=== PATIENT | male | born 1985 | race Caucasian/White ===

== ENCOUNTER 2016-09-15 22:15 | Inpatient (IN) | payer OTHER, BC ==
[~2016-09-15] VITALS: Ht 170.2 cm; Wt 67.4 kg
[~2016-09-15 22:15] MED LIST: Z.0.NO CURRENT MEDS
[2016-09-15 22:20] VITALS: BP 120/66; PULSE 86; RESP 15; TEMP 98.5; O2SAT 98
[2016-09-15] MEDS ORDERED: SODIUM CHLOR 0.9% 1000 ML INJ 1,000 ML IV SCH (22:22)
[2016-09-15 22:27] VITALS: RESP 16; O2SAT 97
[2016-09-15 22:32] VITALS: BP 111/59; PULSE 99; RESP 12; O2SAT 97
[2016-09-15 22:40] LABS: AUTOMATED NEUTROPHIL # 13.6 TH/MM3 (1.8-7.7); BASOPHIL # 0.1 TH/MM3 (0-0.2); BASOPHIL % 0.6 % (0.0-2.0); EOSINOPHIL % 0.1 % (0.0-4.0); HEMATOCRIT 36.7 % (39.0-51.0); HEMO FLAGS DIFF FINAL; LYMPH % 5.2 % (9.0-44.0); LYMPHOCYTE # 0.8 TH/MM3 (1.0-4.8); MEAN CELL VOLUME 78.6 FL (80.0-100.0); MEAN CORPUSCULAR HEMOGLOBIN 26.7 PG (27.0-34.0); MONO % 5.3 % (0.0-8.0); NEUT % 88.8 % (16.0-70.0); PLATELET COUNT 342 TH/MM3 (150-450); RED BLOOD COUNT 4.67 MIL/MM3 (4.50-5.90); RED CELL DISTRIBUTION WIDTH 15.5 % (11.6-17.2); WHITE BLOOD COUNT 15.3 TH/MM3 (4.0-11.0)
[2016-09-15 22:42] LABS: I-STAT POTASSIUM 3.8 MMOL/L (3.5-4.9); I-STAT SODIUM 143 MMOL/L (138-146)
[2016-09-15 22:55] LABS: ANION GAP 11 MEQ/L (5-15); AST (GOT) 85 U/L (15-37); BICARBONATE 23.8 MEQ/L (21.0-32.0); BLOOD UREA NITROGEN 17 MG/DL (7-18); CHLORIDE 110 MEQ/L (98-107); GLOMERULAR FILTRATION RATE 88 ML/MIN (>89); POTASSIUM 3.8 MEQ/L (3.5-5.1); SODIUM (NA) 145 MEQ/L (136-145)
[2016-09-15 22:59] LABS: ALKALINE PHOSPHATASE 140 U/L (45-117); ALT (GPT) 57 U/L (12-78); TOTAL BILIRUBIN ADULT 0.3 MG/DL (0.2-1.0)
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
[2016-09-15] MEDS ORDERED: TETANUS/DIPHTHERIA TOXOID ADULT 0.5 ML VIAL IM ONE (23:15)
[2016-09-15 23:25] LABS: PROTHROMBIN TIME - PATIENT 11.4 SEC (9.8-11.6)
[2016-09-15] MEDS ORDERED: IOHEXOL 350 MG/ML 10 ML VIAL (for RAD DIAG) IV ONE (23:37)
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
[2016-09-16] VITALS (7 sets, daily range): BP systolic 103–148; BP diastolic 57–75; PULSE 56–96; RESP 16–20; TEMP 96.9–98.4; O2SAT 96–100
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
[2016-09-16] MEDS ORDERED: MORPHINE SULFATE 4 MG/ML INJ IV PUSH ONE (00:15)
[2016-09-16] MEDS ORDERED: SODIUM CHLORIDE 0.9% FLUSH 5 ML FLUSH IVF PRN (00:15)
[2016-09-16] MEDS ORDERED: ENALAPRILAT 1.25 MG/ML VIAL IV PRN (00:15)
[2016-09-16] MEDS ORDERED: ONDANSETRON HCL 4 MG/2 ML VIAL IV PRN (00:15)
[2016-09-16] MEDS ORDERED: ACETAMINOPHEN/HYDROcodone 325 MG/5 MG TAB PO PRN (00:15)
[2016-09-16] MEDS ORDERED: HYDROmorphone HCL PF 1 MG/ML VIAL IVP PRN (00:15)
[2016-09-16] MEDS ORDERED: CHLORHEXIDINE GLUCONATE 2 % 1 PACK (2 CLOTHS) TOP PRN (00:15)
[2016-09-16] MEDS ORDERED: MISCELLANEOUS NURSING INFORMATION XX SCH (00:15)
[2016-09-16] MEDS: PANTOPRAZOLE SODIUM 40 MG VIAL IVP SCH ×2 (01:51→22:51)
[2016-09-16] MEDS: DOCUSATE SODIUM 100 MG CAP PO SCH ×3 (01:51→22:53)
[2016-09-16] MEDS: SODIUM CHLOR 0.9% 1000 ML INJ 1,000 ML IV SCH ×3 (01:51→16:08)
[2016-09-16] MEDS: KETOROLAC TROMETHAMINE 30 MG/ML (IVP) VIAL IVP SCH ×4 (02:44→18:38)
[2016-09-16] MEDS: MULTIVITAMIN INJ 10 ML, THIAMINE INJ 100 MG, FOLIC ACID INJ 1 MG in SODIUM CHLORID 0.9%... IV SCH (02:48)
[2016-09-16] MEDS ORDERED: CHLORHEXIDINE GLUCONATE 2 % 1 PACK (2 CLOTHS) TOP SCH (04:00)
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
[2016-09-16] MEDS: ACETAMINOPHEN/HYDROcodone 325 MG/5 MG TAB PO PRN ×2 (15:49→22:51)
[2016-09-16] MEDS ORDERED: MILKSUS PO (21:13)
[2016-09-16] MEDS ORDERED: DOCU1CAP39 PO (21:13)
[2016-09-16] MEDS: MAGNESIUM HYDROXIDE SUSP 30 ML CUP PO SCH (22:53)
[2016-09-17 00:21] VITALS: BP 130/66; PULSE 62; RESP 20; TEMP 96.6; O2SAT 94
[2016-09-17] MEDS: KETOROLAC TROMETHAMINE 30 MG/ML (IVP) VIAL IVP SCH ×4 (01:00→18:37)
[2016-09-17] MEDS: MULTIVITAMIN INJ 10 ML, THIAMINE INJ 100 MG, FOLIC ACID INJ 1 MG in SODIUM CHLORID 0.9%... IV SCH (02:49)
[2016-09-17 03:30] LABS: BLOOD, URINE SMALL (NEG); COMMENT (UR) CULT NOT INDICATED; CULTURE IF INDICATED CULT NOT INDICATED; GLUCOSE,URINE NEG (NEG); KETONE, URINE NEG (NEG); MUCUS URINE FEW /lpf (OCC); NITRITE,URINE NEG (NEG); PH, URINE 6.5 (5.0-8.5); URINE COLOR YELLOW (YELLW/STRAW)
[2016-09-17 04:19] VITALS: BP 111/54; PULSE 55; RESP 20; TEMP 95.4; O2SAT 92
[2016-09-17] MEDS: SODIUM CHLOR 0.9% 1000 ML INJ 1,000 ML IV SCH ×2 (05:28→18:48)
[2016-09-17 05:54] LABS: AUTOMATED NEUTROPHIL # 4.3 TH/MM3 (1.8-7.7); BASOPHIL % 0.5 % (0.0-2.0); EOSINOPHIL # 0.2 TH/MM3 (0-0.4); EOSINOPHIL % 2.8 % (0.0-4.0); HEMATOCRIT 33.4 % (39.0-51.0); HEMO FLAGS DIFF FINAL; LYMPH % 25.2 % (9.0-44.0); LYMPHOCYTE # 1.7 TH/MM3 (1.0-4.8); MEAN CELL VOLUME 78.6 FL (80.0-100.0); MEAN CORPUSCULAR HEMOGLOBIN 26.5 PG (27.0-34.0); MEAN CORPUSCULAR HGB CONC 33.8 % (32.0-36.0); MONO % 7.9 % (0.0-8.0); NEUT % 63.6 % (16.0-70.0); PLATELET COUNT 240 TH/MM3 (150-450); RED BLOOD COUNT 4.25 MIL/MM3 (4.50-5.90); RED CELL DISTRIBUTION WIDTH 15.4 % (11.6-17.2); WHITE BLOOD COUNT 6.7 TH/MM3 (4.0-11.0)
[2016-09-17 06:14] LABS: BICARBONATE 27.5 MEQ/L (21.0-32.0); POTASSIUM 3.9 MEQ/L (3.5-5.1)
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
[2016-09-17 08:18] VITALS: BP 124/71; PULSE 64; RESP 18; TEMP 97.4; O2SAT 94
[2016-09-17] MEDS: DOCUSATE SODIUM 100 MG CAP PO SCH ×2 (08:44→20:35)
[2016-09-17] MEDS ORDERED: LIDOCAINE HCL 1% 50 ML VIAL INFIL ONE (11:15)
--- NOTE | 2016-09-17 12:49 | PD.OP ---
Operative Report Date of Surgery: Sep 17, 2016 Preoperative Diagnosis: (1) Pneumothorax (2) Rib fractures (3) Pulmonary contusion Postoperative Diagnosis: (1) Pneumothorax (2) Rib fractures (3) Pulmonary contusion Procedure: Right chest tube placement Anesthesia: Local 8cc 1% plain lidocaine Surgeon: Jean Trevino Sales Supervisor(s): None Resident Surgeon: None Operation and Findings: After obtaining informed consent the patient was prepped and draped in the standard sterile manner. A small 1 cm incision was made over the third rib and into the second intercostal space, midclavicular line, after infiltrating the area with 8 cc of 1% plain lidocaine. The 8 Italian Bard catheter was then threaded into position. Once the introducer needle breached the anterior pleural wall it was retracted and the catheter threaded without resistance. It was secured with the catheter locking system and connected to a Pleur-evac. The patient tolerated the procedure well there were no complications. Postoperative chest x-ray was ordered to confirm placement. All sharps were accounted for and disposed of properly. Jean Trevino MD Sep 17, 2016 12:49
[2016-09-17 12:50] VITALS: BP 128/70; PULSE 66; RESP 18; TEMP 98.2; O2SAT 95
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
[2016-09-17 19:50] VITALS: BP 132/75; PULSE 64; RESP 18; TEMP 98.5; O2SAT 95
[2016-09-17] MEDS: MAGNESIUM HYDROXIDE SUSP 30 ML CUP PO SCH (20:35)
[2016-09-18] VITALS (7 sets, daily range): BP systolic 103–140; BP diastolic 65–72; PULSE 52–61; RESP 16–20; TEMP 96.3–98; O2SAT 96–99
[2016-09-18] MEDS: PANTOPRAZOLE SODIUM 40 MG VIAL IVP SCH (01:44)
[2016-09-18] MEDS: KETOROLAC TROMETHAMINE 30 MG/ML (IVP) VIAL IVP SCH ×4 (01:45→21:00)
[2016-09-18] MEDS: MULTIVITAMIN INJ 10 ML, THIAMINE INJ 100 MG, FOLIC ACID INJ 1 MG in SODIUM CHLORID 0.9%... IV SCH (02:15)
[2016-09-18] MEDS: SODIUM CHLOR 0.9% 1000 ML INJ 1,000 ML IV SCH ×2 (08:08→21:28)
[2016-09-18] MEDS: SODIUM CHLORIDE 0.9% FLUSH 5 ML FLUSH IVF PRN (09:42)
[2016-09-18] MEDS: DOCUSATE SODIUM 100 MG CAP PO SCH ×2 (09:42→21:00)
--- NOTE | 2016-09-18 10:12 | RADRPT ---
EXAM DATE/TIME: 09/18/2016 09:36 [facility] COMPARISON: CHEST SINGLE AP, September 17, 2016, 13:16. INDICATIONS : Right side chest tube placement yesterday. MEDICAL HISTORY : None. SURGICAL HISTORY : None. ENCOUNTER: Subsequent ACUITY: 4 - 6 days PAIN SCORE: 4/10 LOCATION: Bilateral chest FINDINGS: A single view of the chest demonstrates right basilar pleural parenchymal density. Right-sided chest tube. The cardiomediastinal contours are unremarkable. Osseous structures are intact. CONCLUSION: Right basilar pleural parenchymal density and right-sided chest tube. No pnemothorax. Max Fisher MD on September 18, 2016 at 10:08 Board Certified Radiologist. This report was verified electronically.
[2016-09-18] MEDS: ENOXAPARIN SODIUM 40 MG/0.4 ML SYRINGE SQ SCH (13:00)
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
[2016-09-18] MEDS: MAGNESIUM HYDROXIDE SUSP 30 ML CUP PO SCH (21:00)
[2016-09-19] VITALS: BP 142/59; PULSE 62; RESP 20; TEMP 96.8; O2SAT 96
[2016-09-19] MEDS: PANTOPRAZOLE SODIUM 40 MG VIAL IVP SCH (00:49)
[2016-09-19] MEDS: KETOROLAC TROMETHAMINE 30 MG/ML (IVP) VIAL IVP SCH ×3 (00:50→12:10)
[2016-09-19 04:00] VITALS: BP 115/58; PULSE 52; RESP 16; TEMP 97.4; O2SAT 96
[2016-09-19 06:00] LABS: AUTOMATED NEUTROPHIL # 4.6 TH/MM3 (1.8-7.7); BASOPHIL # 0.1 TH/MM3 (0-0.2); BASOPHIL % 0.7 % (0.0-2.0); EOSINOPHIL # 0.2 TH/MM3 (0-0.4); EOSINOPHIL % 3.5 % (0.0-4.0); HEMATOCRIT 35.8 % (39.0-51.0); HEMO FLAGS DIFF FINAL; LYMPH % 25.2 % (9.0-44.0); LYMPHOCYTE # 1.8 TH/MM3 (1.0-4.8); MEAN CELL VOLUME 78.8 FL (80.0-100.0); MEAN CORPUSCULAR HEMOGLOBIN 26.1 PG (27.0-34.0); MEAN CORPUSCULAR HGB CONC 33.1 % (32.0-36.0); MONO % 7.1 % (0.0-8.0); NEUT % 63.5 % (16.0-70.0); PLATELET COUNT 285 TH/MM3 (150-450); RED BLOOD COUNT 4.54 MIL/MM3 (4.50-5.90); RED CELL DISTRIBUTION WIDTH 15.3 % (11.6-17.2); WHITE BLOOD COUNT 7.2 TH/MM3 (4.0-11.0)
[2016-09-19 06:17] LABS: ANION GAP 8 MEQ/L (5-15); AST (GOT) 37 U/L (15-37); BLOOD UREA NITROGEN 24 MG/DL (7-18); CHLORIDE 107 MEQ/L (98-107); GLOMERULAR FILTRATION RATE 92 ML/MIN (>89); MAGNESIUM 2.3 MG/DL (1.5-2.5); POTASSIUM 3.5 MEQ/L (3.5-5.1); SODIUM (NA) 143 MEQ/L (136-145)
[2016-09-19 06:24] LABS: ALKALINE PHOSPHATASE 124 U/L (45-117); ALT (GPT) 40 U/L (12-78); TOTAL BILIRUBIN ADULT 0.3 MG/DL (0.2-1.0)
--- NOTE | 2016-09-19 06:51 | RADRPT ---
EXAM DATE/TIME: 09/19/2016 05:32 [facility] COMPARISON: CHEST SINGLE AP, September 18, 2016, 9:36. INDICATIONS : Shortness of breath. MEDICAL HISTORY : None. SURGICAL HISTORY : None. ENCOUNTER: Subsequent ACUITY: 4 - 6 days PAIN SCORE: Non-responsive. LOCATION: Bilateral chest FINDINGS: Right chest pigtail thoracostomy tube has retracted slightly from prior position. There is no evidenc e of pneumothorax. Persistent basilar parenchymal opacities which are grossly unchanged. Cardiac cont ours are stable. CONCLUSION: Slight retraction of right chest tube. Otherwise stable chest. Alec Tello MD on September 19, 2016 at 6:49 Board Certified Radiologist. This report was verified electronically.
[2016-09-19 07:55] VITALS: BP 116/65; PULSE 49; RESP 16; TEMP 97.3; O2SAT 97
[2016-09-19] MEDS: DOCUSATE SODIUM 100 MG CAP PO SCH (09:46)
[2016-09-19] MEDS: SODIUM CHLORIDE 0.9% FLUSH 5 ML FLUSH IVF PRN ×2 (09:46→12:11)
[2016-09-19] MEDS: SODIUM CHLOR 0.9% 1000 ML INJ 1,000 ML IV SCH (10:48)
[2016-09-19] MEDS ORDERED: NORC5TAB PO (11:27)
[2016-09-19 12:00] VITALS: BP 135/64; PULSE 51; RESP 16; TEMP 96.6; O2SAT 96
[2016-09-19] MEDS: ENOXAPARIN SODIUM 40 MG/0.4 ML SYRINGE SQ SCH (12:10)
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
== END 2016-09-19 16:55 | disposition home or self-care (01) | DRG 206 ==
LOC: NEPC 22:15 → NEDA 09-16 00:10 → NEDH 09-16 04:17 → N06A 09-16 07:43
PROVIDERS: ADMIT Surgery; ATTEND Surgery
PROC: 0W9930Z Drainage of Right Pleural Cavity with Drainage Device, Percutaneous Approach (ICD-10-PCS; principal; 2016-09-17)
DX: S27.321A Contusion of lung, unilateral, initial encounter (principal); S22.41XA Multiple fractures of ribs, right side, initial encounter for closed fracture; V43.52XA Car driver injured in collision with other type car in traffic accident, initial encounter; Y92.410 Unspecified street and highway as the place of occurrence of the external cause; S27.0XXA Traumatic pneumothorax, initial encounter
CPT/HCPCS: 70450; 71010; 71260; 72125; 72170; 73090; 74177; 80048; 80053; 80320; 81001; 82435; 82565; 82947; 83735; 84132; 84295; 84520; 85025; 85610; 85730; 86850; 86900; 86901; 90471; 90714; 94150; 94640; 94667; 94668; C9113; J1170; J1650; J1885; J2270; J3411; J7030; J7040; Q9967